=== PATIENT | female | born 1975 | race Caucasian/White ===

== ENCOUNTER 2022-08-09 08:44 | Outpatient (CLI) | payer OTHER, SELFPAY ==
--- OUTSIDE RECORDS SUMMARY | 2022-08-09 08:48 | XMS_ITS | Clinical Summary ---
:1975 Author Organization [facility] [place] [address] Care Team Providers Name Role Phone Carina Blum RN Primary Care Provider Allergies No known active allergies Medications Medication Sig Dispensed Refills Start Date End Date Status ALBUTEROL INHL PRN 0 Activ e multivitamin (MVI) Take 1 tablet by 0 04/22/2011 Active tablet mouth once daily. fexofenadine (OLIVIA) Take 1 tablet by 0 08/24/2016 Active 180 mg tablet mouth once daily with a meal. Lactobacillus Take by mouth. 0 08/24/2016 Active acidophilus (PROBIOTIC) 10 billion cell cap miSOPROStol (CYTOTEC) Place 1 tablet 1 tablet 1 11/15/2016 Active 200 mcg in vagina the tabletIndications: night before Displacement of your office intrauterine visit contraceptive device, initial encounter Active Problems Problem Noted Date Supervision of other normal 08/01/2009 Health maintenance Overview: Pap smear 01/14/2009 Immunizations Name Administration Dates Next Due AMB Influenza, IIV3 (Age >=3 years) Preserve Free 10/02/2013 (Flu Clinic Only) Influenza A (H1N1), Inactivated (Age >=3 Years) 10/03/2009 Influenza Virus, Unspecified 09/07/2007, 09/23/2005 Influenza, IIV3 (Age >=3 years) 11/13/2012, 08/07/2009 Influenza, IIV4 10/07/2016, 09/30/2014 Tdap 08/28/2009 Family History Medical History Relation Name Comments Cancer Paternal Grandfather Lung Diabetes Paternal Uncle Cancer-breast Sister stage 1 Cancer-ovarian No Family History Relation Name Status Comments Paternal Grandfather Paternal Uncle Sister Social History Tobacco Use Types Packs/Day Years Used Date Former Smoker Cigarettes 0.5 5 Quit: 10/24/19 05 Smokeless Tobacco: Never Used Alcohol Use Standard Drinks/Week Comments Yes 1.7 (1 standard drink = 0.6 oz pure alco hol) Sex Assigned at Date Recorded Not on file Obstetrics History Para Term AB IAB SAB Ectopic Multiple Living Live Births 2 2 1 1 0 0 0 0 0 2 2 Date Outcome GA Total Labor/2nd/3rd Weight Sex Delivery Anes PTL Katelynn A 1 A5 Name Clin Labor 01/13 32w 1.96 kg M Gener Y Saray Shukri /2005 0d (4 lb 5 al ng r d oz) Delivery Location: [place] 08/26/2009 Term 37w0d 2.41 kg (5 lb 5 F Li jamiecruz [place]ales[place] oz) Delivery Location: [place] Last Filed Vital Signs Vital Sign Reading Time Taken Comments Blood Pressure 114/60 11/23/2016 8:09 AM MEDIA PRODUCTION SUPPORT MANAGER Pulse 60 11/23/2016 8:09 AM MEDIA PRODUCTION SUPPORT MANAGER Temperature 37.3 ??C (99.2 ??F) 05/27/2010 4:18 PM CDT Respiratory Rate 18 05/27/2010 4:18 PM CDT Oxygen Saturation 98% 05/27/2010 4:18 PM CDT Room ai r Inhaled Oxygen Concentration - - Weight 55.8 kg (123 lb) 11/23/2016 8:09 AM MEDIA PRODUCTION SUPPORT MANAGER Height 156.2 cm (5' 1.5) 11/15/2016 1:25 PM MEDIA PRODUCTION SUPPORT MANAGER Body Mass Index 22.86 11/15/2016 1:25 PM MEDIA PRODUCTION SUPPORT MANAGER Plan of Treatment Health Maintenance Due Date Last Done Comments COVID-19 vaccine series (#1) 04/24/1975 Hepatitis C screening for age 0110/25/1992 18-79 BMI (ht and wt on same day) for 11/15/2017 11/15/2016 age 18+ Depression screening for age 12+ 11/15/2017 11/15/2016 Tetanus booster 08/28/2019 08/28/2009 Colonoscopy through age 75 2019 Mammogram for age 45-75 2019 01/13/2017, 11/24/2015, 10/31/2014, Additional history exists Lipids for age 45-75 11/15/2021 11/15/2016, 09/30/2014 Influenza for age 9-49 06/24/2022 10/07/2016, 09/30/2014, 09/30/2014, Additional history exists Pap test for age 21-65 11/26/2022 11/26/2019, 11/26/2019, 11/15/2016, Additional history exists Tdap Completed 08/28/2009 Results Not on filefrom Last 3 Months Insurance Payer Benefit Plan / Subscriber ID Effective Dates Phone Addre ss Type Group [employer] [id number] 2011-Presen [address] [place] [address] Advance Directives Latest Code Status on File Code Status Date Activated Date Inactivated Comments Full Code 08/26/2009 12:38 PM 08/26/2009 7:33 PM Full Code 08/26/2009 11:52 AM 08/26/2009 12:38 PM Full Code 07/08/2009 9:37 AM 07/08/2009 2:50 PM Full Code 06/18/2009 8:53 AM 06/18/2009 2:44 PM Full Code 03/25/2009 8:03 AM 03/25/2009 12:36 PM Care Teams Fine Artist Relationship Specialty Start Date End Date Carina Blum, RN PCP - General Registered Nurse 10/28/14
== END 2022-08-09 08:45 | disposition home or self-care (01) ==
PROVIDERS: PCP Physician Assistant; Visit Provider Physician Assistant
DX: N93.9 Abnormal uterine and vaginal bleeding, unspecified (principal)
CPT/HCPCS: 84443

== ENCOUNTER 2022-08-16 15:46 | Outpatient (CLI) | payer OTHER, SELFPAY ==
--- OUTSIDE RECORDS SUMMARY | 2022-08-16 15:48 | XMS_ITS | Clinical Summary ---
:1975 Author Organization [facility] [place] [address] Care Team Providers Name Role Phone Carina Bulm RN Primary Care Provider Allergies No known [...] al ng r d oz) Delivery Location: [place] 08/26/2009 Term 37w0d 2.41 kg (5 lb 5 F Li jamiecruz Moralesall oz) Delivery Location: [place] Last Filed Vital Signs Vital Sign Reading Time Taken Comments Blood Pressure 114/60 11/23/2016 8:09 AM PROCESSING SUPERVISOR Pulse 60 11/23/2016 8:09 AM PROCESSING SUPERVISOR Temperature 37.3 ??C (99.2 ??F) 05/27/2010 4:18 PM CDT Respiratory Rate 18 05/27/2010 4:18 PM CDT Oxygen Saturation 98% 05/27/2010 4:18 PM CDT Room ai r Inhaled Oxygen Concentration - - Weight 55.8 kg (123 lb) 11/23/2016 8:09 AM PROCESSING SUPERVISOR Height 156.2 cm (5' 1.5) 11/15/2016 1:25 PM PROCESSING SUPERVISOR Body Mass Index 22.86 11/15/2016 1:25 PM PROCESSING SUPERVISOR Plan of Treatment Health Maintenance Due Date [...] Phone Addre ss Type Group [employer] [id number] 2011-[employer]en [address] [place] [address] Advance Directives Latest Code Status on File Code Status Date Activated Date Inactivated Comments Full Code 08/26/2009 12:38 PM 08/26/2009 7:33 PM Full Code 08/26/2009 11:52 AM 08/26/2009 12:38 PM Full Code 07/08/2009 9:37 AM 07/08/2009 2:50 PM Full Code 06/18/2009 8:53 AM 06/18/2009 2:44 PM Full Code 03/25/2009 8:03 AM 03/25/2009 12:36 PM Care Teams Real Estate Utilization Officer Relationship Specialty Start Date End Date Carina Blum, RN PCP - General Registered Nurse 10/28/14
--- NOTE | 2022-08-16 16:00 | CRLHL7_ITS ---
For Patients: As a result of the Century Cures Act, medical imaging exams and procedure reports are released immediately into your electronic medical record. You may view this report before your referring provider. If you have questions, please contact your health care provider. INDICATION: Dysfunctional uterine bleeding. TECHNIQUE: Ultrasound pelvis transvaginal for better assessment or to better visualize the endometrium. Real-time sonographic images of the pelvis. COMPARISON: None. FINDINGS: Uterus: 6.7 x 3.1 x 3.8 cm. Mildly heterogeneous myometrium. No discrete mass. Endometrium: Transvaginal imaging was performed to better evaluate the endometrium. Endometrial thickness measures 4 mm. No sign of endometrial mass or fluid. Right ovary measures 2.2 x 1.3 x 1.6 cm and left ovary measures 2.3 x 0.9 x 1.6 cm. No ovarian or adnexal masses. Normal color flow in the ovaries. Spectral wave analysis was not performed. Cul-de-sac: No significant free fluid. IMPRESSION: Mildly heterogeneous uterus myometrium. Otherwise normal exam. Dictated by Nick Whitaker MD @ 08/17/2022 8:59:43 AM (Electronically Signed)
== END 2022-08-16 15:47 | disposition home or self-care (01) ==
PROVIDERS: PCP Physician Assistant; Visit Provider Physician Assistant
DX: N93.8 Other specified abnormal uterine and vaginal bleeding (principal)
CPT/HCPCS: 76830; 76856

== ENCOUNTER 2025-01-11 09:04 | Outpatient (CLI) | payer OTHER, SELFPAY | END 2025-01-11 09:05 | disposition home or self-care (01) | LOC: FRMREF 09:04 | PROVIDERS: Visit Provider Physician Assistant | DX: R21 Rash and other nonspecific skin eruption (principal) | CPT/HCPCS: 87102 ==

== ENCOUNTER 2025-01-31 08:53 | Outpatient (CLI) | payer OTHER, SELFPAY ==
[2025-02-02 05:30] LABS: HPV Source Cervical; HPV, High Risk by TMA Not Detected
== END 2025-01-31 08:54 | disposition home or self-care (01) ==
PROVIDERS: Visit Provider Physician Assistant
DX: Z13.1 Encounter for screening for diabetes mellitus (principal); Z13.6 Encounter for screening for cardiovascular disorders; Z13.29 Encounter for screening for other suspected endocrine disorder; Z78.0 Asymptomatic menopausal state; Z12.4 Encounter for screening for malignant neoplasm of cervix
CPT/HCPCS: 80061; 82947; 84443; 87624; 87625; 88141; 88142

== ENCOUNTER 2025-06-04 08:03 | Outpatient (CLI) | payer OTHER, SELFPAY ==
--- NOTE | 2025-06-04 08:15 | CRLHL7_ITS ---
For Patients: As a result of the Century Cures Act, medical imaging exams and procedure reports are released immediately into your electronic medical record. You may view this report before your referring provider. If you have questions, please contact your health care provider. INDICATION: BILATERAL SCREENING MAMMOGRAM, ASYMPTOMATIC 49 Y/O FEMALE COMPARISON: 03/25/2021, 03/21/2020, 01/02/2019 TECHNIQUE: Digital mammogram in CC and MLO projections including computer-aided detection (CAD) and tomosynthesis. BREAST COMPOSITION: The breasts are heterogeneously dense, which may obscure small masses. FINDINGS: No suspicious findings. ASSESSMENT: BI-RADS 1 Negative RECOMMENDATION: Annual screening mammogram. A lay language report of this examination will be provided to the patient. Dictated by: Misha Pack MD @ 06/04/2025 10:39:19 (Electronically Signed)
== END 2025-06-04 08:04 | disposition home or self-care (01) ==
LOC: MAMMO 08:03
PROVIDERS: Visit Provider Physician Assistant
DX: Z12.31 Encounter for screening mammogram for malignant neoplasm of breast (principal); R92.333 Mammographic heterogeneous density, bilateral breasts
CPT/HCPCS: 77063; 77067

== ENCOUNTER 2025-06-25 15:33 | Outpatient (CLI) | payer OTHER, SELFPAY ==
--- NOTE | 2025-06-25 16:00 | CRLHL7_ITS ---
For Patients: As a result of the Century Cures Act, medical imaging exams and procedure reports are released immediately into your electronic medical record. You may view this report before your referring provider. If you have questions, please contact your health care provider. INDICATION: Postmenopausal bleeding COMPARISON: None. TECHNIQUE: 2D mortensen-scale and color Doppler images were acquired of the pelvis using a transabdominal and transvaginal approach. Transvaginal imaging performed to better visualize the endometrial stripe and ovaries. FINDINGS: Sonographic images demonstrate a normal size and smooth outer contour of the uterus. Uterus measures 7.1 cm in length by 4.0 cm in AP diameter by 4.5 cm in transverse dimension. The myometrium has a heterogeneous echotexture. The endometrial lining measures 3 mm in composite thickness. The right ovary is not visualized due to bowel gas and the left ovary measures 2.6 x 0.9 x 1.4 cm. The left ovary demonstrates normal arterial and venous blood flow on color Doppler analysis. There are no suspicious fluid collections within the cul-de-sac. IMPRESSION: Endometrial thickness 3 millimeters. No endometrial fluid. No uterine fibroid. Dictated by Misha Pack MD @ 06/26/2025 6:52:38 AM (Electronically Signed)
== END 2025-06-25 15:34 | disposition home or self-care (01) ==
LOC: US 15:34
PROVIDERS: Visit Provider Physician Assistant
DX: N93.8 Other specified abnormal uterine and vaginal bleeding (principal); R93.89 Abnormal findings on diagnostic imaging of other specified body structures
CPT/HCPCS: 76830; 76856

== ENCOUNTER 2025-07-01 08:54 | Outpatient (CLI) | payer OTHER, SELFPAY | END 2025-07-01 08:55 | disposition home or self-care (01) | LOC: LKVREF 08:55 | PROVIDERS: Visit Provider Physician Assistant Medical | DX: Z00.00 Encounter for general adult medical examination without abnormal findings (principal) | CPT/HCPCS: 80053 ==